=== PATIENT | male | born 1970 | race Caucasian/White ===

== ENCOUNTER 2018-05-13 20:10 | Emergency (ER) | payer OTHER ==
[2018-05-13] MEDS ORDERED: HYDROMORPHONE HCL INJ/PF 2 MG/ML AMPULE IV ONE (21:16)
[2018-05-13] MEDS ORDERED: ONDANSETRON HCL INJ/PF 4 MG/2 ML SDV IV ONE (21:16)
--- NOTE | 2018-05-13 21:18 | ER Document Report ---
ED GI/ - General Chief Complaint: Testicular Pain Stated Complaint: SEVERE ABDOMINAL/LEFT TESTICLE PAIN Primary Care Provider: MONIKA CH MD [Primary Care Provider] - Follow up as needed Notes: Patient is a 47-year-old male that comes to the emergency department for chief complaint of sudden onset of severe pain in his left lower abdomen and left testicle area, he does have radiations around left flank. After arrival to the emergency department he began vomiting. Symptoms started 2 hours prior to arrival. He denies dysuria, hematuria, fever, or history of kidney stones. Past medical history of GERD and hypertension, treated. He has also had bilateral inguinal hernia repair. at bedside. TRAVEL OUTSIDE OF THE [place] IN LAST 30 DAYS: No - Related Data Allergies/Adverse Reactions: No Known Allergies Allergy (Verified 10/09/12 09:53) Past Medical History - General Information source: Patient - Social History Smoking Status: Never Smoker Frequency of alcohol use: None Drug Abuse: None Lives with: Family Family History: Reviewed & Not Pertinent Patient has suicidal ideation: No Patient has homicidal ideation: No - Past Medical History Cardiac Medical History: Reports: Hx Hypertension Denies: Hx Heart Attack Pulmonary Medical History: Denies: Hx Asthma, Hx Bronchitis, Hx COPD, Hx Pneumonia Neurological Medical History: Denies: Hx Cerebrovascular Accident, Hx Seizures Renal/ Medical History: Denies: Hx Peritoneal Dialysis Musculoskeletal Medical History: Reports Hx Arthritis Past Surgical History: Reports: Hx Abdominal Surgery - bilat inguinal hernia repair ' - Immunizations Hx Diphtheria, Pertussis, Tetanus Vaccination: Yes Review of Systems - Review of Systems Constitutional: No symptoms reported EENT: No symptoms reported Cardiovascular: No symptoms reported Respiratory: No symptoms reported Gastrointestinal: See HPI Genitourinary: See HPI Male Genitourinary: See HPI Musculoskeletal: No symptoms reported Skin: No symptoms reported Hematologic/Lymphatic: No symptoms reported Neurological/Psychological: No symptoms reported Physical Exam - Vital signs Vitals: Temp Pulse Resp BP Pulse Ox 97.9 F 78 22 H 156/114 H 98 05/13/18 20:19 05/13/18 20:19 05/13/18 20:19 05/13/18 20:19 05/13/18 20:19 - Notes Notes: GENERAL: Patient appears uncomfortable, appears to have recently vomited HEAD: Normocephalic, atraumatic. EYES: Pupils equal, round, and reactive to light. Extraocular movements intact. ENT: Oral mucosa moist, tongue midline. Oropharynx unremarkable. Airway patent. Nares patent, no nasal septal hematoma, TM's intact. NECK: Full range of motion. Supple. Trachea midline. LUNGS: Clear to auscultation bilaterally, no wheezes, rales, or rhonchi. No respiratory distress. HEART: Regular rate and rhythm. No murmur ABDOMEN: There is tenderness in the left mid to lower quadrant, remaining abdomen is benign and unremarkable. GENITOURINARY: There is minimal tenderness over the left scrotum generally, there is no erythema or swelling, normal cremaster reflex, unremarkable otherwise. EXTREMITIES: Moves all 4 extremities spontaneously. No edema, normal radial and dorsalis pedis pulses bilaterally. No cyanosis. BACK: no cervical, thoracic, lumbar midline tenderness. No saddle anesthesia, normal distal neurovascular exam. No CVA tenderness noted. NEUROLOGICAL: Alert and oriented x3. Normal speech. [cranial nerves II through XII grossly intact]. SKIN: Warm, dry, normal turgor. No rashes or lesions noted. Course - Re-evaluation Re-evalutation: On initial evaluation patient is in obvious discomfort, who appears to have recently vomited. He does have some minimal tenderness over the left testicle area but no severe tenderness, no swelling, normal cremasteric reflex, no erythema or signs of infection. He does have pain along the left lower quadrant and left mid quadrant as well. No overt CVA tenderness noted. He is not tachycardic or febrile. Decision was made to proceed with both ultrasound of the scrotum and CAT scan because of his presentation to rule out ureterolithiasis, obstruction, torsion, or other abnormality. I do not see any evidence of hernia or incarcerated hernia. Patient was given pain medication, nausea medication, he was reevaluated, symptoms completely resolved. He is now comfortable appearing and denies any current complaints. CBC unremarkable. Chemistry unremarkable. Urinalysis unremarkable. CT with no acute findings. Ultrasound showing small incidental cyst on the left epididymis, small bilateral hydroceles, otherwise unremarkable. I discussed with patient in detail at bedside. He remains asymptomatic. Based on his presentation I suspect he may have passed a small stone but he does not have hematuria, this is not definite. His initial presentation did not suggest torsion or intermittent torsion either based on his physical examination. I am uncertain of the exact etiology. Because of his symptoms, ultrasound, patient will be referred to urology, I discussed strict return precautions for symptoms of torsion and in general. Patient states satisfaction and agreement with plan. - Vital Signs Vital signs: Temp Pulse Resp BP Pulse Ox 98.2 F 82 16 127/73 H 98 05/14/18 00:47 05/14/18 00:47 05/14/18 00:47 05/14/18 00:47 05/14/18 00:47 - Laboratory Result Diagrams: 05/13/18 21:25 05/13/18 21:25 Laboratory results interpreted by me: 05/13/18 05/13/18 05/13/18 21:25 21:25 22:00 WBC 12.1 H Absolute Neutrophils 9.0 H Calcium 10.5 H Urine Urobilinogen 2.0 H Discharge - Discharge Clinical Impression: Testicular pain, Left lower quadrant pain, Left flank pain Condition: Stable Disposition: HOME, SELF-CARE Additional Instructions: There is no passing stone or concerning abnormality seen on your imaging or with up at this time. There is a tiny cyst on the epididymis on the left side, there are small hydroceles as we discussed. It is possible that he passed a small kidney stone, but this is not definite. I recommend wearing supportive underwear, taking the ketorolac as prescribed, and following up with the urologist referral listed below. Call for appointment. Return if you worsen including returned pain, vomiting, fever, swelling of the abdomen or testicles, or any other concerning or worsening symptoms. [facility] [address] [place], [place] [id number] [facility] [address] [place], [place] [id number] Gracie Hill MD Doctor in [place], [place] Address: [address], [place] [address] Prescriptions: Ketorolac Tromethamine [Toradol 10 mg Tablet] 10 mg PO Q8HP PRN #[id number] tablet PRN Reason: Referrals: MONIKA CH MD [Primary Care Provider] - Follow up as needed
[2018-05-13 21:38] LABS: ABSOLUTE BASOPHILS # (AUTO) 0.1 10^3/uL (0.0-0.2); ABSOLUTE EOSINOPHILS # (AUTO) 0.1 10^3/uL (0.0-0.6); ABSOLUTE LYMPHOCYTES (AUTO) 1.9 10^3/uL (0.5-4.7); BASOPHILS % (AUTO) 0.5 % (0-2); EOSINOPHILS % (AUTO) 0.9 % (0-6); LYMPHOCYTES % (AUTO) 15.7 % (13-45); MEAN CORPUSCULAR HEMOGLOBIN 30.6 pg (27.0-33.4); MEAN CORPUSCULAR HGB CONC 34.1 g/dL (32.0-36.0); MEAN CORPUSCULAR VOLUME 90 fl (80-97); MONOCYTES % (AUTO) 8.2 % (3-13); PLATELET COUNT 287 10^3/uL (150-450); RED BLOOD COUNT 4.91 10^6/uL (4.35-5.55); RED CELL DISTRIBUTION WIDTH 13.6 % (11.5-14.0); SEGMENTED NEUTROPHILS % (AUTO) 74.7 % (42-78); TOTAL CELLS COUNTED % (AUTO) 100 %; WHITE BLOOD COUNT 12.1 10^3/uL (4.0-10.5)
[2018-05-13 21:53] LABS: ANION GAP 14 (5-19); BLOOD UREA NITROGEN 19 mg/dL (7-20); CALCIUM 10.5 mg/dL (8.4-10.2); CARBON DIOXIDE 26 mmol/L (22-30); CHLORIDE 98 mmol/L (98-107); GLUCOSE 104 mg/dL (75-110); POTASSIUM 3.7 mmol/L (3.6-5.0); SODIUM 138.4 mmol/L (137-145)
[2018-05-13 22:20] LABS: APPEARANCE,URINE CLEAR; BILIRUBIN,URINE NEGATIVE (NEGATIVE); COLOR,URINE YELLOW; GLUCOSE, URINE NEGATIVE (NEGATIVE); KETONES,URINE NEGATIVE (NEGATIVE); LEUKOCYTE ESTERASE,URINE NEGATIVE (NEGATIVE); NITRITE,URINE NEGATIVE (NEGATIVE); PROTEIN,URINE NEGATIVE (NEGATIVE); URINE SPECIFIC GRAVITY 1.026
[2018-05-14] MEDS ORDERED: KETOROLAC TROMETHAMINE INJ/PF 30 MG/1 ML SDV IV ONE (00:32)
[2018-05-14 00:48] VITALS: BP 127/73
--- NOTE | 2018-05-14 01:28 | RADIOLOGY REPORT (SQ) ---
EXAM DESCRIPTION: CT ABDOMEN PELVIS WITHOUT IV CONTRAST COMPLETED DATE/TME: 05/13/2018 21:16 CLINICAL HISTORY: 47 years, Male, left abd, testicle, and flank pain; vomiting COMPARISON: None. TECHNIQUE: 419 Images stored on PACS. All CT scanners at this facility use dose modulation, iterative reconstruction, and/or weight based dosing when appropriate to reduce radiation dose to as low as reasonably achievable (ALARA). [facility]: Dose Right [facility]: CareDose [facility]: Dose Right [facility]: Teradose 4D [facility]: [employer] LIMITATIONS: None. FINDINGS: Limited evaluation of the lung bases is unremarkable. Osseous structures are grossly intact. Fatty infiltrative change to the liver. The spleen, adrenal glands, pancreas, kidneys are grossly unremarkable. Gallbladder is present. No gross evidence for bowel obstruction. The appendix is not well seen. No pericecal inflammation. Urinary bladder is not distended, limiting its evaluation. No free air or free fluid. IMPRESSION: Negative for urinary tract calculus or hydronephrosis. No free air or free fluid. Fatty infiltrative change to the liver TECHNICAL DOCUMENTATION: Quality ID # 436: Final reports with documentation of one or more dose reduction techniques (e.g., Automated exposure control, adjustment of the mA and/or kV according to patient size, use of iterative reconstruction technique) copyright 2011 [employer]- All Rights Reserved
--- NOTE | 2018-05-14 01:29 | RADIOLOGY REPORT (SQ) ---
EXAM DESCRIPTION: US SCROTUM COMPLETED DATE/TME: 05/13/2018 00:00 CLINICAL HISTORY: 47 years, Male, left testicular pain, severe COMPARISON: None. TECHNIQUE: Transverse longitudinal sonographic images of the testes LIMITATIONS: None. FINDINGS: The right testicle measures 4.8 x 3.3 x 2.5 cm, the left 4.7 x 3.5 x 2.3 cm. Small bilateral hydroceles. Doppler and spectral analysis with color flow was utilized. Arterial and venous flow to both testes. Negative for intratesticular mass. A 3 x 2 mm left epididymal head cyst is incidentally noted. The epididymides are otherwise unremarkable. IMPRESSION: Small bilateral hydroceles. Tiny left epididymal head cyst. copyright 2010 [employer]- All Rights Reserved
== END 2018-05-14 00:49 | disposition home or self-care (01) ==
LOC: ER 20:10
DX: N50.812 Left testicular pain (principal); R10.32 Left lower quadrant pain; R10.30 Lower abdominal pain, unspecified; R11.10 Vomiting, unspecified; K21.9 Gastro-esophageal reflux disease without esophagitis; I10 Essential (primary) hypertension
CPT/HCPCS: 99284; 96374; 96375; 36415; 85025; 80048; 81001; 76870; 93976; 74176; J1885; J1170; J2405